=== PATIENT | female | born 1960 | race Caucasian/White ===

== ENCOUNTER 2017-01-20 10:43 | Inpatient (IN) | payer OTHER ==
[2017-01-20] VITALS (14 sets, daily range): BP systolic 94–118; BP diastolic 47–77; PULSE 90–110; TEMP 36.3–37.3; O2SAT 94–100; Ht 119.4 cm; Wt 58.6 kg
[~2017-01-20] VITALS: Ht 119.4 cm; Wt 58.6 kg
--- NOTE | 2017-01-20 11:27 | EMERGENCY ROOM VISIT NOTE ---
History Report prepared by Vladimir: Mena Ybarra Under the Supervision of: Dr. Cortes Bob M.D. First contact with patient: 11:08 Chief Complaint: ABNORMAL LABS Stated Complaint: BLOODY STOOL/ FR 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 According to the nurses, the patient comes from [facility] where she had been staying after she fell and injured her lower extremities. She was referred to the ED after her hemoglobin was found to be low. She states that she has knee pain. She denies any abdominal pain or pain elsewhere. The history is limited due to the patient' s mental impairment. 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 Review of Systems Unable to complete due to patient's mental impairment. 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 Social History Smoking Status: Never Smoker Marital Status: single Occupation Status: disabled Current/Historical Medications Scheduled Calcium Carbonate-Cholecalcife (Caltrate 600+D), 1 TAB PO BID Celecoxib (CeleBREX), 200 MG PO QAM Dexlansoprazole (Dexilant), 30 MG PO DAILY Diclofenac Epolamine (Flector), 1 PATCH EXT BID Docusate Sodium (Colace), 1 CAP PO BID Ferrous Sulfate (Ferrous Sulfate), 300 MG PO TID Levothyroxine Sodium (Synthroid), 125 MCG PO QAM Multivitamin (Multivitamin), 1 TAB PO DAILY Polyethylene (Miralax), 17 GM PO DAILY Sucralfate (Carafate), 1 GM PO BID Scheduled PRN Hydrocodone/Acetaminophen 5MG/325MG ([place] 5MG/325MG), 1 TABLET PO Q6H PRN for Pain Loratadine (Claritin), 10 MG PO DAILY PRN for ALLERGIC REACTION Allergies Coded Allergies: No Known Allergies (Unverified , 01/20/17) Physical Exam Vital Signs Date Time Temp Pulse Resp B/P Pulse Ox O2 Delivery O2 Flow Rate FiO2 01/20/17 10:56 96 01/20/17 10:55 36.9 109 22 104/73 97 Room Air Physical Exam GENERAL: Patient is in no significant distress. Patient awake, alert, oriented x 3. Patient follows commands. Patient does not appear toxic. Patient is adequately hydrated and well-nourished. SKIN: No erythema, cyanosis or rash. Very pale. HEENT: Normal head, pupils equal, reactive to light and accommodation. Ears normal. Oral cavity and posterior pharynx appear normal. Neck: Without adenopathy, no neck vein distention. LUNGS: Clear to auscultation. No wheezes, no rales, no rhonchi. HEART: Grade 2/6 systolic murmur. No gallops. No rubs ABDOMEN: Morbidly obese. No masses, no rebound, no hepatomegaly or splenomegaly. RECTAL: Brown guaiac negative stool, no masses palpated. EXTREMITIES: Casts on both lower legs. Patient has full ROM of the right knee, but appears to have an old deformity of the right knee. NEUROLOGIC: Cranial nerves II-XII within normal limits. No gross motor sensory function deficits. Medical Decision & Procedures ER Provider Diagnostic Interpretation: X ray results are stated below per my interpretation and the radiologist's interpretation. CHEST ONE VIEW PORTABLE CLINICAL HISTORY: anemia COMPARISON STUDY: No previous studies for comparison. FINDINGS: The study is rotated. Heart is normal in size given the AP technique. There is no overt failure. There is no focal pulmonary consolidation. The bones appear osteopenic.[ IMPRESSION: AP portable study. No acute findings. Electronically signed by: Eduar Perales M.D. 01/20/2017 12:18 PM Dictated Date/Time: 01/20/2017 12:17 PM Laboratory Results 01/20/17 10:55 Red Blood Count 2.32, Mean Corpuscular Volume 91.4, Mean Corpuscular Hemoglobin 27.2, Mean Corpuscular Hemoglobin Concent 29.7, Mean Platelet Volume 9.9, Neutrophils (%) (Auto) 60.4, Lymphocytes (%) (Auto) 18.7, Monocytes (%) (Auto) 13.2, Eosinophils (%) (Auto) 5.5, Basophils (%) (Auto) 2.2, Neutrophils # (Auto ) 1.65, Lymphocytes # (Auto) 0.51, Monocytes # (Auto) 0.36, Eosinophils # (Auto ) 0.15, Basophils # (Auto) 0.06 01/20/17 10:55 Test 01/20/17 10:55 White Blood Count 2.73 K/uL (4.8-10.8) Red Blood Count 2.32 M/uL (4.2-5.4) Hemoglobin 6.3 g/dL (12.0-16.0) Hematocrit 21.2 % (37-47) Mean Corpuscular Volume 91.4 fL (80-100) Mean Corpuscular Hemoglobin 27.2 pg (25-34) Mean Corpuscular Hemoglobin Concent 29.7 g/dl (32-36) Platelet Count 473 K/uL (130-400) Mean Platelet Volume 9.9 fL (7.4-10.4) Neutrophils (%) (Auto) 60.4 % Lymphocytes (%) (Auto) 18.7 % Monocytes (%) (Auto) 13.2 % Eosinophils (%) (Auto) 5.5 % Basophils (%) (Auto) 2.2 % Neutrophils # (Auto) 1.65 K/uL (1.4-6.5) Lymphocytes # (Auto) 0.51 K/uL (1.2-3.4) Monocytes # (Auto) 0.36 K/uL (0.11-0.59) Eosinophils # (Auto) 0.15 K/uL (0-0.5) Basophils # (Auto) 0.06 K/uL (0-0.2) RDW Standard Deviation 54.1 fL (36.4-46.3) RDW Coefficient of Variation 16.1 % (11.5-14.5) Immature Granulocyte % (Auto) 0.0 % Immature Granulocyte # (Auto) 0.00 K/uL (0.00-0.02) Nucleated RBC Absolute Count (auto) 0.02 K/uL (0-0) Nucleated Red Blood Cells % 0.7 % Hypochromasia PRESENT Prothrombin Time 10.9 SECONDS (9.0-12.0) Prothromb Time International Ratio 1.0 (0.9-1.1) Activated Partial Thromboplast Time 22.2 SECONDS (21.0-31.0) Partial Thromboplastin Ratio 0.9 Anion Gap 8.0 mmol/L (3-11) Estimated GFR () 102.8 Estimated GFR (Non- 88.7 BUN/Creatinine Ratio 8.1 (10-20) Calcium Level 7.8 mg/dl (8.5-10.1) Iron Level 71 mcg/dl (35-150) Total Iron Binding Capacity 200 mcg/dl (250-450) Ferritin 21.4 ng/ml (8.0-388.0) Total Bilirubin 0.2 mg/dl (0.2-1) Aspartate Amino Transf (AST/SGOT) 15 U/L (15-37) Alanine Aminotransferase (ALT/SGPT) 16 U/L (12-78) Alkaline Phosphatase 194 U/L (45-117) Total Protein 5.2 gm/dl (6.4-8.2) Albumin 1.9 gm/dl (3.4-5.0) Globulin 3.3 gm/dl (2.5-4.0) Albumin/Globulin Ratio 0.6 (0.9-2) Laboratory results as stated above per my review. ECG Indication: weakness Rate (beats per minute): 88 Rhythm: normal sinus Findings: no acute ischemic change, no ectopy ED Course 1111: Past medical records reviewed. The patient was evaluated in room B7. A complete history and physical examination was performed. 1300: I discussed the patient's case with Dr. Lawrence bryant. The patient will be evaluated for further management. Medical Decision Differential diagnoses: severe anemia, GI bleed, hemolysis. There is limited history from [facility]. Patient has casts on both lower legs. She was found to have a very low hemoglobin well at [facility] and sent here. The patient is pale. Stool is guaiac negative. Hemoglobin is just above 6. The patient will require further evaluation and transfusion. The patient was typed and crossed for 2 units. Consent was signed by me. I discussed care with the hospitalist. Consults Time Called: 1255 Consulting Physician: Dr. Lawrence Merritt hospitalist Returned Call: 1300 Discussed the patient's case with her. The patient will be evaluated for further management. Impression Primary Impression: Severe anemia Scribe Attestation The scribe's documentation has been prepared under my direction and personally reviewed by me in its entirety. I confirm that the note above accurately reflects all work, treatment, procedures, and medical decision making performed by me. Departure Information Dispostion Being Evaluated By Hospitalist Patient Instructions [facility]
[2017-01-20] MEDS ORDERED: [UNRECOGNIZED DRUG - OTHER] (12:05)
[2017-01-20] MEDS ORDERED: SYN125 PO (12:05)
[2017-01-20] MEDS ORDERED: MRLP17X PO (12:05)
[2017-01-20] MEDS ORDERED: CLB/200 PO (12:05)
[2017-01-20] MEDS ORDERED: SUCR1TAB29 PO (12:05)
[2017-01-20] MEDS ORDERED: PANT40TA PO (12:05)
[2017-01-20] MEDS ORDERED: MULT-506 PO (12:05)
[2017-01-20 12:07] LABS: PARTIAL THROMBOPLASTIN RATIO 0.9; PROTHROMBIN TIME (PATIENT) 10.9 SECONDS (9.0-12.0)
[2017-01-20 12:11] LABS: HEMATOCRIT 21.2 % (37-47); MEAN CELL VOLUME 91.4 fL (80-100); MEAN CORPUSCULAR HEMOGLOBIN 27.2 pg (25-34); MEAN CORPUSCULAR HGB CONC 29.7 g/dl (32-36); MEAN PLATELET VOLUME 9.9 fL (7.4-10.4); PLATELET COUNT 473 K/uL (130-400); RED BLOOD COUNT 2.32 M/uL (4.2-5.4); WHITE BLOOD COUNT 2.73 K/uL (4.8-10.8)
[2017-01-20 12:18] LABS: ALT/SGPT 16 U/L (12-78); AST/SGOT 15 U/L (15-37); BLOOD UREA NITROGEN 6 mg/dl (7-18); BUN/CREATININE RATIO 8.1 (10-20); CALCIUM 7.8 mg/dl (8.5-10.1); CARBON DIOXIDE 26 mmol/L (21-32); CHLORIDE 106 mmol/L (98-107); CREATININE 0.74 mg/dl (0.60-1.20); GLUCOSE 88 mg/dl (70-99); POTASSIUM 4.6 mmol/L (3.5-5.1); SODIUM 140 mmol/L (136-145)
[2017-01-20 12:20] LABS: ALB/GLOB RATIO 0.6 (0.9-2); ALKALINE PHOSPHATASE 194 U/L (45-117)
--- NOTE | 2017-01-20 12:20 | DIAGNOSTIC IMAGING REPORT ---
CHEST ONE VIEW PORTABLE CLINICAL HISTORY: anemia COMPARISON STUDY: No previous studies for comparison. FINDINGS: The study is rotated. Heart is normal in size given the AP technique. There is no overt failure. There is no focal pulmonary consolidation. The bones appear osteopenic.[ IMPRESSION: AP portable study. No acute findings. Electronically signed by: Eduar Perales M.D. 01/20/2017 12:18 PM Dictated Date/Time: 01/20/2017 12:17 PM
[2017-01-20 12:38] LABS: BASO % 2.2 %; BASO ABS # 0.06 K/uL (0-0.2); COMPLETE YES; EOS % 5.5 %; HYPOCHROMIA PRESENT; LYMPH % 18.7 %; LYMPH ABS # 0.51 K/uL (1.2-3.4); MONO % 13.2 %; NEUT % 60.4 %
[2017-01-20] MEDS ORDERED: DOCU-94 PO (13:01)
[2017-01-20] MEDS ORDERED: FSLL PO (13:01)
[2017-01-20] MEDS ORDERED: CLR10 PO (13:01)
[2017-01-20] MEDS ORDERED: DEXL30CA5 PO (13:01)
[2017-01-20 13:46] LABS: URINE APPEARANCE CLEAR (CLEAR); URINE BILIRUBIN NEG (NEG); URINE COLOR YELLOW; URINE NITRITE NEG (NEG); URINE SPECIFIC GRAVITY 1.007 (1.000-1.030); UROBILINOGEN NEG (NEG); ZZURINE CULT IF INDIC CATH NO
[2017-01-20 13:47] LABS: MANUAL MICROSCOPIC REQUIRED? NO; REVIEW REQ? NO
[2017-01-20] MEDS ORDERED: CALC-354 PO (14:10)
[2017-01-20] MEDS ORDERED: DICL1.3D21 EXT (14:10)
[2017-01-20] MEDS ORDERED: HYDR-5688 PO (14:10)
[2017-01-20 14:55] LABS: FERRITIN 21.4 ng/ml (8.0-388.0)
--- NOTE | 2017-01-20 15:46 | History and Physical ---
History & Physical Date & Time of Service: Jan 20, 2017 at 14:28 Chief Complaint: Bloody Stool/ Fr [facility] Primary Care Physician: Earl Silvestre History of Present Illness Source: patient 57 yo F with Downs syndrome who presents from [facility] with abnormally low Hb, which was checked after reports of bloody stools per family. Outpatient notes also reflect this. The patient states that she has had no issues except for pain in her knees, and has known OA. She takes Celebrex consistently and uses a Flector patch and undergoes regular steroid injections in her knees and shoulders. She most recently was falling at home (twice in one day and appears to have tripped-no loss of consciousness) and has several broken metatarsals as a result for which she was just casted one week ago by Dr. Copeland. She denies any lightheadedness, shortness of breath, abdominal pain, chest pain or any other symptom at this time. She is a poor historian based on her mental capacity it appears, but is alert and responsive to questions. Review of labs in the chart reveal a Hb 11 in Nov 2015, which appeared to slowly decline over the year, and was most recently 8.2 on 11/28 and now 6.3 today. FOBT was checked on 12/26 and was positive, however, the patient is also on iron supplementation. FOBT today was negative and rectal exam was normal per ED physician. She has not had a colonoscopy in the past related to concerns with tolerating the prep. She has a h/o EGD in 2014 (four subsequent ones for dilation of a benign stricture) which was normal. The family reports that she has had no appetite for the past week but has not had any weight loss. Past Medical/Surgical History Medical Problems: (1) Anemia Status: Chronic (2) Chronic pain of both knees Status: Chronic (3) Down syndrome Status: Chronic (4) Esophageal stricture Permanent Comment: s/p EGD with dilation in 03/2015, 03/2015, 06/2015, 07/2015 Status: Chronic (5) Generalized osteoarthritis Status: Chronic (6) Hypothyroidism (acquired) Status: Chronic (7) senior living prescription opiate use Status: Chronic (8) Metatarsal stress fracture of left foot Status: Chronic (9) Metatarsal stress fracture of right foot Status: Chronic (10) Multiple falls Status: Chronic (11) Vitamin B12 deficiency Status: Chronic Family History Patient reports no known family medical history. Social History Smoking Status: Never Smoker Smokeless Tobacco Use: No Alcohol Use: none Drug Use: none Marital Status: single Housing status: lives with family (sister Kelsi is her organ builder along with Kelsi 's son.) Occupational Status: disabled Immunizations History of Influenza Vaccine: Yes Influenza Vaccine Date: Nov 28, 2016 History of Tetanus Vaccine?: Yes Tetanus Immunization Date: Aug 07, 2011 History of Pneumococcal: Yes Pneumococcal Date: Aug 07, 2011 History of Hepatitis B Vaccine: Unknown Multi-Drug Resistant Organisms History of MDRO: No Allergies Coded Allergies: No Known Allergies (Unverified , 01/20/17) Home Medications Scheduled Calcium Carbonate-Cholecalcife (Caltrate 600+D), 1 TAB PO BID Celecoxib (CeleBREX), 200 MG PO QAM Dexlansoprazole (Dexilant), 30 MG PO DAILY Diclofenac Epolamine (Flector), 1 PATCH EXT BID Docusate Sodium (Colace), 1 CAP PO BID Ferrous Sulfate (Ferrous Sulfate), 300 MG PO TID Levothyroxine Sodium (Synthroid), 125 MCG PO QAM Multivitamin (Multivitamin), 1 TAB PO DAILY Polyethylene (Miralax), 17 GM PO DAILY Sucralfate (Carafate), 1 GM PO BID Scheduled PRN Hydrocodone/Acetaminophen 5MG/325MG ([place] 5MG/325MG), 1 TABLET PO Q6H PRN for Pain Loratadine (Claritin), 10 MG PO DAILY PRN for ALLERGIC REACTION Review of Systems Family and patient both provided answers. Constitutional: No chills, No fatigue, No fever, No weight loss ENT: No trouble swallowing Respiratory: No cough, No shortness of breath Cardiovascular: No chest pain, No edema Abdomen: + GI bleeding (intermittently over several months-no clear pattern), + diarrhea (one lone episode two nights ago-resolved), No nausea, No pain, No vomiting Musculoskeletal: + joint pain (knees and R shoulder, severe OA) Genitourinary - Female: No dysuria Neurologic: + problem reported (Down's syndrome ) Psychiatric: No problem reported Physical Exam Vital Signs Date Time Temp Pulse Resp B/P Pulse Ox O2 Delivery O2 Flow Rate FiO2 01/20/17 14:00 37.0 93 22 94/61 94 4/22/17 14:00 93 22 94/61 94 01/20/17 13:45 37.0 110 22 95/61 97 01/20/17 13:37 36.7 107 20 106/55 97 01/20/17 10:56 96 01/20/17 10:55 36.9 109 22 104/73 97 Room Air GEN: obese, in no acute distress, alert and responsive to questions, attention is easily diverted, articulation is impaired at baseline 2/2 Down's syndrome HEENT: NC/AT, PERRL, normal sclerae, mucous membranes moist, pharynx non-acute CARDIO: tachy rate, S1/2 heard without m/g/r LUNGS: CTA bilaterally, no crackles, rales or wheezes, good diaphragmatic excursion ABD: soft, non-tender, non-distended, no rebound or guarding, +BS EXTREMITY: hard casts on bilateral lower extremities to just below the knees all way to toes. Toes are warm and sensation intact bilaterally. Moves all extremities equally. NEURO: CN 2-12 grossly intact, sensation intact throughout MUSC: moves all extremities equally SKIN: warm and dry, nurses report no skin breakdown when she was turned in the ER. Diagnostics Laboratory Results Results Past 24 Hours Test 01/20/17 10:55 01/20/17 13:30 Range/Units White Blood Count 2.73 4.8-10.8 K/uL Red Blood Count 2.32 4.2-5.4 M/uL Hemoglobin 6.3 12.0-16.0 g/dL Hematocrit 21.2 37-47 % Mean Corpuscular Volume 91.4 80-100 fL Mean Corpuscular Hemoglobin 27.2 25-34 pg Mean Corpuscular Hemoglobin Concent 29.7 32-36 g/dl Platelet Count 473 130-400 K/uL Mean Platelet Volume 9.9 7.4-10.4 fL Neutrophils (%) (Auto) 60.4 % Lymphocytes (%) (Auto) 18.7 % Monocytes (%) (Auto) 13.2 % Eosinophils (%) (Auto) 5.5 % Basophils (%) (Auto) 2.2 % Neutrophils # (Auto) 1.65 1.4-6.5 K/uL Lymphocytes # (Auto) 0.51 1.2-3.4 K/uL Monocytes # (Auto) 0.36 0.11-0.59 K/uL Eosinophils # (Auto) 0.15 0-0.5 K/uL Basophils # (Auto) 0.06 0-0.2 K/uL RDW Standard Deviation 54.1 36.4-46.3 fL RDW Coefficient of Variation 16.1 11.5-14.5 % Immature Granulocyte % (Auto) 0.0 % Immature Granulocyte # (Auto) 0.00 0.00-0.02 K/uL Nucleated RBC Absolute Count (auto) 0.02 0-0 K/uL Nucleated Red Blood Cells % 0.7 % Hypochromasia PRESENT Prothrombin Time 10.9 9.0-12.0 SECONDS Prothromb Time International Ratio 1.0 0.9-1.1 Activated Partial Thromboplast Time 22.2 21.0-31.0 SECONDS Partial Thromboplastin Ratio 0.9 Sodium Level 140 136-145 mmol/L Potassium Level 4.6 3.5-5.1 mmol/L Chloride Level 106 98-107 mmol/L Carbon Dioxide Level 26 21-32 mmol/L Anion Gap 8.0 3-11 mmol/L Blood Urea Nitrogen 6 7-18 mg/dl Creatinine 0.74 0.60-1.20 mg/dl Estimated GFR () 102.8 Estimated GFR (Non- 88.7 BUN/Creatinine Ratio 8.1 10-20 Random Glucose 88 70-99 mg/dl Calcium Level 7.8 8.5-10.1 mg/dl Total Bilirubin 0.2 0.2-1 mg/dl Aspartate Amino Transf (AST/SGOT) 15 15-37 U/L Alanine Aminotransferase (ALT/SGPT) 16 12-78 U/L Alkaline Phosphatase 194 45-117 U/L Total Protein 5.2 6.4-8.2 gm/dl Albumin 1.9 3.4-5.0 gm/dl Globulin 3.3 2.5-4.0 gm/dl Albumin/Globulin Ratio 0.6 0.9-2 Urine Color YELLOW Urine Appearance CLEAR CLEAR Urine pH 6.0 4.5-7.5 Urine Specific [place] 1.007 1.000-1.030 Urine Protein NEG NEG Urine Glucose (UA) NEG NEG Urine Ketones NEG NEG Urine Occult Blood NEG NEG Urine Nitrite NEG NEG Urine Bilirubin NEG NEG Urine Urobilinogen NEG NEG Urine Leukocyte Esterase NEG NEG Diagnostic Radiology CHEST ONE VIEW PORTABLE CLINICAL HISTORY: anemia COMPARISON STUDY: No previous studies for comparison. FINDINGS: The study is rotated. Heart is normal in size given the AP technique. There is no overt failure. There is no focal pulmonary consolidation. The bones appear osteopenic.[ IMPRESSION: AP portable study. No acute findings. EKG SR 88, no ST changes. Impression Assessment and Plan 57 yo Downs patient with subacute anemia requiring transfusion 1. Anemia-recent reports of blood in stool per outpatient notes and patient is on Celebrex and uses Flector patches for severe OA. Likely GI source. H/H noted to be last normal Nov 2015 and gradually decreased to current level over the year. She was admitted to [facility] after recent falls and subsequent metatarsal fractures s/p casting two weeks ago and unable to walk on her own-- she lives and is cared for by her elderly sister. HS heard reports of blood in stool and got CBC which showed a Hb 5.5 and the patient was sent over. GI was consulted. Hold on any PPI drip at this time as there is no evidence of active bleeding at this time. Will cont PPI BID. Of note, FOBT as outpatient on 12/26 was positive and colonoscopy was recommended, however, there was concern over how she would handle the prep. Will monitor on tele overnight and attempt prep tonight. Two units of blood are ordered with a post-transfusion H/H. She is slightly tachycardic but it otherwise asymptomatic and not ill-appearing. Her biggest complaint is her knee pain. I also spoke with Dr. Copeland by phone today who states that there was some bruising present in the feet pre-cast. Dr. Morales to see her in the morning. 2. 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 This is a significant problem for her as she gets regular outpatient steroid injections in her knees and R shoulder. She uses celebrex consistently and Flector patches. Will hold these now and cont Crowder PRN for pain control. 3. hypothyroidism-cont Synthroid at current home dose 125mcg daily 4. Metatarsal fractures-per Dr. Copeland she has 2nd thru 5th metatarsal fractures on the L foot and 3rd thru 5th metatarsal fractures on the R foot after multiple falls at home. She was casted (BL feet) about one week ago and she has been having difficulty bearing weight. Therefore, she was admitted to [facility] yesterday from home. The casts will stay in place for 4-6 weeks. PT/OT was ordered to work with her as an inpatient. 5. Leukopenia- appears to be chronic, may be normal variant. Outpatient workup recommended as needed. Full Code DVT proph-cannot give chemoprophylaxis in setting of bleed and no TEDS/SCDs because of casts, however patient has risk factors for DVT with immobilization. Dispo-to telemetry for initial monitoring DO Juan RodriguezKaiser Haywardist Level of Care Telemetry Resuscitation Status FULL RESUSCITATION VTE Prophylaxis VTE Risk Assessment Done? Y/N: Yes Risk Level: Moderate Given or contraindicated: Contraindicated Social Service Consult Lives in [facility] (currently receiving treatment at [facility])
[2017-01-20] MEDS: PANTOprazole INJ 40 MG in SYRINGE 0 ML IV SCH ×2 (16:15→20:16)
[2017-01-20] MEDS: LAVAGE SOLUTION 4000ML PO SCH ×4 (18:04→18:13)
[2017-01-20 18:30] LABS: HEMATOCRIT 28.2 % (37-47)
[2017-01-20] MEDS ORDERED: NURSING VERBAL MED ORDER ONE (19:15)
[2017-01-20] MEDS: HYDROCODONE/ACETAMOPHEN 5/325MG TAB PO PRN (20:17)
[2017-01-20] MEDS: FERROUS SULFATE 325 MG/7.4 ML UDP PO SCH (20:18)
[2017-01-20] MEDS ORDERED: SODIUM CHLORIDE 0.9% 1000ML 1,000 ML IV SCH (20:45)
[2017-01-21 04:02] VITALS: BP 114/74; PULSE 106; TEMP 36.8; O2SAT 95
[2017-01-21] MEDS: LEVOTHYROXINE 125 MCG TAB PO SCH (05:32)
[2017-01-21] MEDS: HYDROCODONE/ACETAMOPHEN 5/325MG TAB PO PRN ×2 (05:32→14:03)
[2017-01-21 05:55] LABS: HEMATOCRIT 26.6 % (37-47); MEAN CELL VOLUME 86.4 fL (80-100); MEAN CORPUSCULAR HEMOGLOBIN 27.6 pg (25-34); MEAN PLATELET VOLUME 9.8 fL (7.4-10.4); PLATELET COUNT 372 K/uL (130-400); RED BLOOD COUNT 3.08 M/uL (4.2-5.4); WHITE BLOOD COUNT 2.24 K/uL (4.8-10.8)
[2017-01-21 06:28] LABS: BUN/CREATININE RATIO 12.1 (10-20); CALCIUM 7.4 mg/dl (8.5-10.1); CREATININE 0.63 mg/dl (0.60-1.20); POTASSIUM 4.3 mmol/L (3.5-5.1)
[2017-01-21 07:33] VITALS: BP 114/69; PULSE 90; TEMP 36.6; O2SAT 95
[2017-01-21] MEDS: POLYETHYLENE (MIRALAX) 17 GM PACK PO SCH (08:21)
[2017-01-21] MEDS: PANTOprazole INJ 40 MG in SYRINGE 0 ML IV SCH ×2 (08:21→20:17)
[2017-01-21] MEDS: FERROUS SULFATE 325 MG/7.4 ML UDP PO SCH ×3 (08:21→20:17)
[2017-01-21 11:54] VITALS: BP 123/67; PULSE 82; TEMP 36.6; O2SAT 96
--- NOTE | 2017-01-21 12:44 | Progress Note ---
Internal Med Progress Note Date of Service: Jan 21, 2017. Provider Documentation: SUBJECTIVE: The patient was seen and examined Mentally challenged with Down syndrome Complains of right Knee pain No other symptoms OBJECTIVE: Vital Signs-as noted below Exam: General-no distress at rest Eyes-normal ENT-normal Neck-supple Lungs-clear to ausucltate bilaterally Heart-Regular Abdomen-Benign,no masses,bowel sound present Extremities-No edema Neuro-AAOx3 Lab data as noted below. ASSESSMENT & PLAN: Acute Blood Loss Anemia Likely from GI tract No pedro bleeding Guiac positive as an OP Hb <7 on admission ,received 2 units of PRBC ,Hb >8 Denies any symptoms GI consulted Severe Osteoarthritis Complains of pain in right Knee Has had Injection before Has been on Narcotic pain medication Will try Lidocaine patch Hypothyroidism-cont Synthroid at current home dose 125mcg daily Metatarsal fractures-per Dr. Copeland 2nd thru 5th metatarsal fractures on the L foot and 3rd thru 5th metatarsal fractures on the R foot after multiple falls at home. She was casted (BL feet) about one week ago and she has been having difficulty bearing weight. The casts will stay in place for 4-6 weeks. PT/OT was ordered to work with her as an inpatient. Leukopenia- appears to be chronic, may be normal variant. Outpatient workup recommended as needed. Full Code DVT proph-cannot give chemoprophylaxis in setting of bleed and no TEDS/SCDs because of casts, however patient has risk factors for DVT with immobilization. DISPOSITION Awaited Vital Signs: Date Time Temp Pulse Resp B/P Pulse Ox O2 Delivery O2 Flow Rate FiO2 01/21/17 11:54 36.6 82 19 123/67 96 Room Air 01/21/17 08:00 Room Air 01/21/17 07:33 36.6 90 18 114/69 95 Room Air 01/21/17 04:02 36.8 106 20 114/74 95 Room Air 01/21/17 04:00 Room Air 01/20/17 23:59 Room Air 01/20/17 23:50 36.5 90 15 97/59 96 Room Air 01/20/17 20:03 37.3 98 18 111/47 96 Room Air 01/20/17 20:00 Room Air 01/20/17 16:46 36.6 103 18 115/54 95 01/20/17 16:08 100 Room Air 01/20/17 16:05 36.6 102 18 101/61 100 01/20/17 15:46 36.6 100 18 118/62 100 01/20/17 15:26 36.9 100 21 117/75 97 Room Air 01/20/17 15:11 37.0 110 18 101/77 01/20/17 15:00 36.6 96 18 101/67 100 01/20/17 14:52 100 Room Air 01/20/17 14:52 36.3 101 18 101/77 100 Room Air 01/20/17 14:51 100 Room Air 01/20/17 14:00 37.0 93 22 94/61 94 01/20/17 14:00 93 22 94/61 94 01/20/17 13:45 37.0 110 22 95/61 97 01/20/17 13:37 36.7 107 20 106/55 97 Lab Results: Results Past 24 Hours Test 01/20/17 13:30 01/20/17 18:15 01/21/17 05:20 Range/Units Urine Color YELLOW Urine Appearance CLEAR CLEAR Urine pH 6.0 4.5-7.5 Urine Specific [place] 1.007 1.000-1.030 Urine Protein NEG NEG Urine Glucose (UA) NEG NEG Urine Ketones NEG NEG Urine Occult Blood NEG NEG Urine Nitrite NEG NEG Urine Bilirubin NEG NEG Urine Urobilinogen NEG NEG Urine Leukocyte Esterase NEG NEG Hemoglobin 8.9 8.5 12.0-16.0 g/dL Hematocrit 28.2 26.6 37-47 % White Blood Count 2.24 4.8-10.8 K/uL Red Blood Count 3.08 4.2-5.4 M/uL Mean Corpuscular Volume 86.4 80-100 fL Mean Corpuscular Hemoglobin 27.6 25-34 pg Mean Corpuscular Hemoglobin Concent 32.0 32-36 g/dl RDW Standard Deviation 53.4 36.4-46.3 fL RDW Coefficient of Variation 16.9 11.5-14.5 % Platelet Count 372 130-400 K/uL Mean Platelet Volume 9.8 7.4-10.4 fL Nucleated RBC Absolute Count (auto) 0.04 0-0 K/uL Nucleated Red Blood Cells % 1.8 % Sodium Level 143 136-145 mmol/L Potassium Level 4.3 3.5-5.1 mmol/L Chloride Level 111 98-107 mmol/L Carbon Dioxide Level 25 21-32 mmol/L Anion Gap 7.0 3-11 mmol/L Blood Urea Nitrogen 8 7-18 mg/dl Creatinine 0.63 0.60-1.20 mg/dl Est Creatinine Clear Calc Drug Dose 50.3 ml/min Estimated GFR () 113.8 Estimated GFR (Non- 98.2 BUN/Creatinine Ratio 12.1 10-20 Random Glucose 68 70-99 mg/dl Calcium Level 7.4 8.5-10.1 mg/dl
[2017-01-21 15:22] VITALS: BP 116/63; PULSE 102; TEMP 36.5; O2SAT 95
--- NOTE | 2017-01-21 15:37 | Medical Consult ---
Consultation Note Date of Service Jan 21, 2017. Consultation Note Reason fro consult: anemia 57 yo Female with Downs syndrome presents with [facility] with complaints of bloody stools and anemia. She is hemodynamically stable, with FOBT neg stool on admission. Hgb 6 with normal MCV and ferritin of 21. Received 2 U with rise in Hgb to 8. No bleeding since admission. h/o EGD with dilation; no h/o cscopy in the past. 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 Social History Smoking Status: Never Smoker Smokeless Tobacco Use: No Alcohol Use: none Drug Use: none Marital Status: single Housing status: lives with family (sister Kelsi is her farm or ranch animal caretaker along with Kelsi 's son.) Occupational Status: disabled Immunizations History of Influenza Vaccine: Yes Influenza Vaccine Date: Nov 28, 2016 History of Tetanus Vaccine?: Yes Tetanus Immunization Date: Aug 07, 2011 History of Pneumococcal: Yes Pneumococcal Date: Aug 07, 2011 History of Hepatitis B Vaccine: Unknown Multi-Drug Resistant Organisms History of MDRO: No Allergies Coded Allergies: No Known Allergies (Unverified , 01/20/17) Home Medications Scheduled Calcium Carbonate-Cholecalcife (Caltrate 600+D), 1 TAB PO BID Celecoxib (CeleBREX), 200 MG PO QAM Dexlansoprazole (Dexilant), 30 MG PO DAILY Diclofenac Epolamine (Flector), 1 PATCH EXT BID Docusate Sodium (Colace), 1 CAP PO BID Ferrous Sulfate (Ferrous Sulfate), 300 MG PO TID Levothyroxine Sodium (Synthroid), 125 MCG PO QAM Multivitamin (Multivitamin), 1 TAB PO DAILY Polyethylene (Miralax), 17 GM PO DAILY Sucralfate (Carafate), 1 GM PO BID Scheduled PRN Hydrocodone/Acetaminophen 5MG/325MG ([place] 5MG/325MG), 1 TABLET PO Q6H PRN for Pain Loratadine (Claritin), 10 MG PO DAILY PRN for ALLERGIC REACTION Review of Systems Family and patient both provided answers. Constitutional: No chills, No fatigue, No fever, No weight loss ENT: No trouble swallowing Respiratory: No cough, No shortness of breath Cardiovascular: No chest pain, No edema Abdomen: + GI bleeding (intermittently over several months-no clear pattern), + diarrhea (one lone episode two nights ago-resolved), No nausea, No pain, No vomiting Musculoskeletal: + joint pain (knees and R shoulder, severe OA) Genitourinary - Female: No dysuria Neurologic: + problem reported (Down's syndrome ) Psychiatric: No problem reported Physical Exam Vital Signs Date Time Temp Pulse Resp B/P Pulse Ox O2 Delivery O2 Flow Rate FiO2 01/20/17 14:00 37.0 93 22 94/61 94 01/20/17 14:00 93 22 94/61 94 01/20/17 13:45 37.0 110 22 95/61 97 01/20/17 13:37 36.7 107 20 106/55 97 01/20/17 10:56 96 01/20/17 10:55 36.9 109 22 104/73 97 Room Air GEN: obese, in no acute distress, alert and responsive to questions, \ HEENT: NC/AT, PERRL, normal sclerae, mucous membranes moist, pharynx non-acute CARDIO: tachy rate, S1/2 heard without m/g/r LUNGS: CTA bilaterally, no crackles, rales or wheezes, good diaphragmatic excursion ABD: soft, non-tender, non-distended, no rebound or guarding, +BS EXTREMITY: hard casts on bilateral lower extremities to just below the knees all way to toes. Toes are warm and sensation intact bilaterally. Moves all extremities equally. NEURO: CN 2-12 grossly intact, sensation intact throughout MUSC: moves all extremities equally SKIN: warm and dry, nurses report no skin breakdown when she was turned in the ER. Diagnostics Laboratory Results Labs reviewed Impression Assessment and Plan 57 yo Downs patient with iron deficiency anemia - Would check Hp and celiac serologies as outpt. - Plan EGD and cscopy on Sunday.
[2017-01-21] MEDS ORDERED: LIDODERM (LIDOCAINE) PATCH 5% TD ONE (18:00)
[2017-01-21 19:07] VITALS: BP 112/57; PULSE 95; TEMP 37; O2SAT 97
[2017-01-21 23:50] VITALS: BP_SYST 111; BP_SYST 97; BP_DIAS 53; BP_DIAS 74; PULSE 67; PULSE 88; TEMP 37.3; O2SAT 92; O2SAT 94
[2017-01-22 04:12] VITALS: BP 118/69; PULSE 85; TEMP 36.5; O2SAT 96
--- NOTE | 2017-01-22 07:23 | Clinical Documentation Query ---
CLINICAL DOCUMENTATION QUERY Dr. LARA, In your clinical opinion is this patient being managed for: ( + ) GI bleed (causing acute blood loss anemia) ( ) Other explanation of clinical findings (Please Explain) ( ) Unable to determine (Please Define) ( ) Need to Discuss ( ) Not Agree The medical record reflects the following clinical findings, treatment, and risk factors. Clinical Indicators: H/P indicates pt with anemia likely GI source; subsequent progress note indicates acute blood loss anemia likely from GI tract. Noted that pt had guaiac positive as an outpatient. Treatment: GI consult with plan for endoscopies, 2U PRBC's, serial CBC's, IV protonix Risk Factors: celebrex, flector patch Please clarify and document your clinical opinion in the progress notes and discharge summary. Terms such as "probable", "suspected", "likely", "questionable", "possible", or "still to be ruled out" are acceptable. IF IN AGREEMENT, YOU MUST DOCUMENT ABOVE DIAGNOSTIC STATEMENT IN DAILY PROGRESS NOTES AND DISCHARGE SUMMARY. This document is not part of the patient's record. Thank You, Camille Marti, NENITA [phone]
[2017-01-22] MEDS: PANTOprazole INJ 40 MG in SYRINGE 0 ML IV SCH ×2 (07:52→22:13)
[2017-01-22] MEDS: HYDROCODONE/ACETAMOPHEN 5/325MG TAB PO PRN ×2 (07:52→19:45)
[2017-01-22] MEDS: LEVOTHYROXINE 125 MCG TAB PO SCH (07:53)
[2017-01-22] MEDS: LIDODERM (LIDOCAINE) PATCH 5% TD SCH (07:53)
[2017-01-22] MEDS: FERROUS SULFATE 325 MG/7.4 ML UDP PO SCH ×3 (07:53→21:38)
[2017-01-22] MEDS: POLYETHYLENE (MIRALAX) 17 GM PACK PO SCH (07:53)
[2017-01-22 07:54] VITALS: BP 113/70; PULSE 93; TEMP 37; O2SAT 96
[2017-01-22 09:01] LABS: HEMATOCRIT 28.5 % (37-47); MEAN CELL VOLUME 87.7 fL (80-100); MEAN CORPUSCULAR HEMOGLOBIN 27.4 pg (25-34); MEAN CORPUSCULAR HGB CONC 31.2 g/dl (32-36); MEAN PLATELET VOLUME 9.5 fL (7.4-10.4); PLATELET COUNT 360 K/uL (130-400); RED BLOOD COUNT 3.25 M/uL (4.2-5.4); WHITE BLOOD COUNT 3.09 K/uL (4.8-10.8)
[2017-01-22 09:27] LABS: BUN/CREATININE RATIO 5.6 (10-20); CREATININE 0.68 mg/dl (0.60-1.20); POTASSIUM 4.2 mmol/L (3.5-5.1)
[2017-01-22 09:30] LABS: ALB/GLOB RATIO 0.6 (0.9-2)
[2017-01-22 09:38] LABS: CALCIUM 7.9 mg/dl (8.5-10.1)
[2017-01-22 11:08] VITALS: BP 116/71; PULSE 92; TEMP 36.5; O2SAT 96
--- NOTE | 2017-01-22 11:42 | Progress Note ---
Internal Med Progress Note Date of Service: Jan 22, 2017. Provider Documentation: SUBJECTIVE: The patient was seen and examined Mentally challenged with Down syndrome Complains of right Knee pain -better with the patch Complains of Back pain today no other symptoms OBJECTIVE: Vital Signs-as noted below Exam: General-no distress at rest Eyes-normal ENT-normal Neck-supple Lungs-clear to ausucltate bilaterally Heart-Regular Abdomen-Benign,no masses,bowel sound present Extremities-No edema Severe OA changes of the joints Bilateral Leg casts Neuro-AAOx3 Lab data as noted below. ASSESSMENT & PLAN: Acute Blood Loss Anemia-Likely from GI tract No pedro bleeding Guiac positive as an OP but not [facility] Hb <7 on admission ,received 2 units of PRBC ,Hb >8 Denies any symptoms now GI consulted -appreciate input Has Iron deficiency-started on Oral and has been on that. May need IV Iron in future EGD and Colonoscopy tomorrow Hb 8.9 today Severe Osteoarthritis Complains of pain in right Knee Has had Injection before Has been on Narcotic pain medication Will try Lidocaine patch -helping Hypothyroidism-cont Synthroid at current home dose 125mcg daily Metatarsal fractures-per Dr. Copeland 2nd thru 5th metatarsal fractures on the L foot and 3rd thru 5th metatarsal fractures on the R foot after multiple falls at home. She was casted (BL feet) about one week ago and she has been having difficulty bearing weight. The casts will stay in place for 4-6 weeks. PT/OT was ordered to work with her as an inpatient. Leukopenia- appears to be chronic, may be normal variant. Outpatient workup recommended as needed. Chronic -3.09 today Full Code DVT proph-cannot give chemoprophylaxis in setting of bleed and no TEDS/SCDs because of casts, however patient has risk factors for DVT with immobilization. DISPOSITION Awaited Vital Signs: Date Time Temp Pulse Resp B/P Pulse Ox O2 Delivery O2 Flow Rate FiO2 01/22/17 08:00 Room Air 01/22/17 07:54 37.0 93 20 113/70 96 Room Air 01/22/17 04:12 36.5 85 20 118/69 96 Room Air 01/22/17 04:00 Room Air 01/21/17 23:59 Room Air 01/21/17 23:50 37.3 88 22 97/53 94 Room Air 01/21/17 20:00 Room Air 01/21/17 19:07 37.0 95 19 112/57 97 Room Air 01/21/17 16:00 Room Air 01/21/17 15:22 36.5 102 16 116/63 95 Room Air 01/21/17 12:00 Room Air 01/21/17 11:54 36.6 82 19 123/67 96 Room Air Lab Results: Results Past 24 Hours Test 01/22/17 08:50 Range/Units White Blood Count 3.09 4.8-10.8 K/uL Red Blood Count 3.25 4.2-5.4 M/uL Hemoglobin 8.9 12.0-16.0 g/dL Hematocrit 28.5 37-47 % Mean Corpuscular Volume 87.7 80-100 fL Mean Corpuscular Hemoglobin 27.4 25-34 pg Mean Corpuscular Hemoglobin Concent 31.2 32-36 g/dl RDW Standard Deviation 54.1 36.4-46.3 fL RDW Coefficient of Variation 16.8 11.5-14.5 % Platelet Count 360 130-400 K/uL Mean Platelet Volume 9.5 7.4-10.4 fL Sodium Level 143 136-145 mmol/L Potassium Level 4.2 3.5-5.1 mmol/L Chloride Level 109 98-107 mmol/L Carbon Dioxide Level 26 21-32 mmol/L Anion Gap 8.0 3-11 mmol/L Blood Urea Nitrogen 4 7-18 mg/dl Creatinine 0.68 0.60-1.20 mg/dl Est Creatinine Clear Calc Drug Dose 46.0 ml/min Estimated GFR () 111.0 Estimated GFR (Non- 95.7 BUN/Creatinine Ratio 5.6 10-20 Random Glucose 91 70-99 mg/dl Calcium Level 7.9 8.5-10.1 mg/dl Total Bilirubin 0.2 0.2-1 mg/dl Aspartate Amino Transf (AST/SGOT) 19 15-37 U/L Alanine Aminotransferase (ALT/SGPT) 16 12-78 U/L Alkaline Phosphatase 183 45-117 U/L Total Protein 4.6 6.4-8.2 gm/dl Albumin 1.8 3.4-5.0 gm/dl Globulin 2.8 2.5-4.0 gm/dl Albumin/Globulin Ratio 0.6 0.9-2
[2017-01-22] MEDS ORDERED: NURSING VERBAL MED ORDER ONE (14:30)
[2017-01-22] MEDS ORDERED: LORAZEPAM 0.5 MG TAB ONE (14:44)
[2017-01-22] MEDS ORDERED: LORAZEPAM 0.5 MG TAB PO PRN (15:00)
[2017-01-22 15:22] VITALS: BP 100/67; PULSE 95; TEMP 37; O2SAT 98
--- NOTE | 2017-01-22 15:59 | Gastroenterology Progress Note ---
Progress Note Date of Service: Jan 22, 2017 Subjective Pt evaluation today including: conversation w/ patient, conversation w/ family , physical exam, chart review, lab review, review of inpatient medication list Pt denies any abd pain, n/v. Per RN she didn't any s/s of rectal bleeding or dark stools. Noted Hgb up from 6 to 8.9 after 2U PRBC transfusion on 01/20. Currently on Ferrous Sulfate 325mg TID Review of Systems Constitutional: No chills, No fever Abdomen: No GI bleeding, No nausea, No pain, No vomiting Medications Current Inpatient Medications Medications (Trade) Dose Ordered Sig/Jose Route Start Time Stop Time Status Last Admin Dose Admin Ferrous Sulfate (Feosol Elix) 325 mg TID PO 01/20/17 21:00 02/19/17 20:59 01/22/17 14:41 325 MG Levothyroxine Sodium (Synthroid Tab) 125 mcg DAILYBB PO 01/21/17 06:00 02/20/17 06:59 01/22/17 07:53 125 MCG Polyethylene (Miralax Powder Packet) 17 gm DAILY PO 01/21/17 09:00 02/20/17 08:59 01/22/17 07:53 17 GM Acetaminophen/ Hydrocodone Bitart 1 tab 1 tab Q6H PRN PO 01/20/17 14:15 02/03/17 14:14 01/22/17 07:52 1 TAB Pantoprazole Sodium/Syringe (Protonix Inj/ Syringe) 10 ml @ 5 mls/min Q12 IV 01/20/17 16:15 02/19/17 16:14 01/22/17 07:52 5 MLS/MIN Lidocaine (Lidoderm Patch 5%) 1 patch QAM TD 01/22/17 09:00 02/21/17 08:59 01/22/17 07:53 1 PATCH Miscellaneous (Remove Lidoderm Patch) 1 ea DAILY@21 N/A 01/21/17 23:00 02/20/17 22:59 01/21/17 23:19 1 EA Lorazepam (Ativan Tab) 0.5 mg Q4H PRN PO 01/22/17 15:00 02/21/17 14:59 Enteral Nutritional Formula (Boost Breeze Nutritional Drink) 1 box BIDM PO 01/22/17 16:45 02/21/17 16:44 Objective Vital Signs Date Time Temp Pulse Resp B/P Pulse Ox O2 Delivery O2 Flow Rate FiO2 01/22/17 15:22 37.0 95 20 100/67 98 Room Air 01/22/17 12:00 Room Air 01/22/17 11:08 36.5 92 20 116/71 96 Room Air 01/22/17 08:00 Room Air 01/22/17 07:54 37.0 93 20 113/70 96 Room Air 01/22/17 04:12 36.5 85 20 118/69 96 Room Air 01/22/17 04:00 Room Air 01/21/17 23:59 Room Air 01/21/17 23:50 37.3 88 22 97/53 94 Room Air 01/21/17 20:00 Room Air 01/21/17 19:07 37.0 95 19 112/57 97 Room Air 01/21/17 16:00 Room Air Physical Exam General Appearance: WD/WN, no apparent distress Eyes: normal inspection, PERRL, EOMI Neck: supple, no JVD, trachea midline Respiratory/Chest: no respiratory distress, no accessory muscle use, + decreased breath sounds Cardiovascular: regular rate, rhythm, no gallop, no murmur Abdomen: normal bowel sounds, non tender, soft Extremities: normal inspection, no pedal edema, no calf tenderness Neurologic/Psych: alert, normal mood/affect, oriented x 3 Skin: normal color, no jaundice, no rash Laboratory Results Last 24 Hours Test 01/22/17 08:50 White Blood Count 3.09 K/uL Red Blood Count 3.25 M/uL Hemoglobin 8.9 g/dL Hematocrit 28.5 % Mean Corpuscular Volume 87.7 fL Mean Corpuscular Hemoglobin 27.4 pg Mean Corpuscular Hemoglobin Concent 31.2 g/dl RDW Standard Deviation 54.1 fL RDW Coefficient of Variation 16.8 % Platelet Count 360 K/uL Mean Platelet Volume 9.5 fL Sodium Level 143 mmol/L Potassium Level 4.2 mmol/L Chloride Level 109 mmol/L Carbon Dioxide Level 26 mmol/L Anion Gap 8.0 mmol/L Blood Urea Nitrogen 4 mg/dl Creatinine 0.68 mg/dl Est Creatinine Clear Calc Drug Dose 46.0 ml/min Estimated GFR () 111.0 Estimated GFR (Non- 95.7 BUN/Creatinine Ratio 5.6 Random Glucose 91 mg/dl Calcium Level 7.9 mg/dl Total Bilirubin 0.2 mg/dl Aspartate Amino Transf (AST/SGOT) 19 U/L Alanine Aminotransferase (ALT/SGPT) 16 U/L Alkaline Phosphatase 183 U/L Total Protein 4.6 gm/dl Albumin 1.8 gm/dl Globulin 2.8 gm/dl Albumin/Globulin Ratio 0.6 Assessment and Plan Pt is a 57 y/o female w Down's Syndrome seen for iron deficiency anemia. Previously had bloody stools but repeat FOBT negative. Had 4 EGDs in 2015 w dilation of esophageal stricture. Hgb been stable at 8.9 since 2U PRBC transfusion. No more signs of rectal bleeding. Spoke w pt's sister Kelsi today - she wishes to defer further endoscopic evaluation of pt. - Continue iron supplements - Continue Protonix 40mg BID - Check Hpylori stool and celiac ab panel - Defer endoscopy evals; will sign off and pls call if new questions or concerns arise. I performed a history and physical examination of the patient. I have discussed the patient's case, impression and plan with BERT Mckoy on . Her note reflects my findings and plan. Had lengthy discussion with family (sisters) as well. The patient and family do not want any invasive testing at this time. Patient should stay on daily PPI. Rubén Vazquez MD
[2017-01-22] MEDS ORDERED: POLYETHYLENE (MIRALAX) 17 GM PACK PO ONE ×2 (17:00→21:00)
[2017-01-22] MEDS ORDERED: BISACODYL 5 MG TABEC PO ONE (17:00)
[2017-01-22] MEDS: BOOST BREEZE NUTRITION DRINK 1 BOX PO SCH (17:17)
[2017-01-22 20:03] VITALS: BP 90/45; PULSE 94; TEMP 37.2; O2SAT 97
[2017-01-23 03:36] VITALS: BP 108/62; PULSE 79; TEMP 37; O2SAT 95
[2017-01-23] MEDS: LEVOTHYROXINE 125 MCG TAB PO SCH (05:27)
[2017-01-23] MEDS: HYDROCODONE/ACETAMOPHEN 5/325MG TAB PO PRN (05:34)
[2017-01-23 06:20] LABS: HEMATOCRIT 30.7 % (37-47); MEAN CELL VOLUME 88.7 fL (80-100); MEAN CORPUSCULAR HEMOGLOBIN 26.9 pg (25-34); MEAN CORPUSCULAR HGB CONC 30.3 g/dl (32-36); MEAN PLATELET VOLUME 10.1 fL (7.4-10.4); PLATELET COUNT 385 K/uL (130-400); RED BLOOD COUNT 3.46 M/uL (4.2-5.4); WHITE BLOOD COUNT 2.55 K/uL (4.8-10.8)
[2017-01-23 06:59] LABS: BUN/CREATININE RATIO 5.9 (10-20); CALCIUM 7.6 mg/dl (8.5-10.1); CREATININE 0.63 mg/dl (0.60-1.20); POTASSIUM 3.7 mmol/L (3.5-5.1)
[2017-01-23 07:16] VITALS: BP 141/74; PULSE 100; TEMP 36.5; O2SAT 97
[2017-01-23] MEDS: BOOST BREEZE NUTRITION DRINK 1 BOX PO SCH (07:25)
[2017-01-23] MEDS: FERROUS SULFATE 325 MG/7.4 ML UDP PO SCH (07:26)
[2017-01-23] MEDS: LIDODERM (LIDOCAINE) PATCH 5% TD SCH (07:26)
[2017-01-23] MEDS: POLYETHYLENE (MIRALAX) 17 GM PACK PO SCH (07:27)
[2017-01-23] MEDS: PANTOprazole INJ 40 MG in SYRINGE 0 ML IV SCH (07:28)
--- NOTE | 2017-01-23 08:02 | Clinical Documentation Query ---
CLINICAL DOCUMENTATION QUERY Dr. LEIVA, In your clinical opinion is this patient being managed for: ( ) GI bleed (causing acute blood loss anemia) ( ) Other explanation of clinical findings (Please Explain) ( ) Unable to determine (Please Define) ( ) Need to Discuss ( ) Not Agree The medical record reflects the following clinical findings, treatment, and risk factors. Clinical Indicators: H/P indicates pt with anemia likely GI source; subsequent progress note indicates acute blood loss anemia likely from GI tract. Noted that pt had guaiac positive as an outpatient. Treatment: GI consult with plan for endoscopies, 2U PRBC's, serial CBC's, IV protonix Risk Factors: celebrex, flector patch Please clarify and document your clinical opinion in the progress notes and discharge summary. Terms such as "probable", "suspected", "likely", "questionable", "possible", or "still to be ruled out" are acceptable. IF IN AGREEMENT, YOU MUST DOCUMENT ABOVE DIAGNOSTIC STATEMENT IN DAILY PROGRESS NOTES AND DISCHARGE SUMMARY. This document is not part of the patient's record. Thank You, Camille Marti RN [phone]
--- NOTE | 2017-01-23 10:35 | Progress Note ---
Medicine Progress Note Date & Time of Visit: Jan 23, 2017 at 10:17. Subjective Pt was seen and examined sitting in bed with no distress pt said that she feels fine her only complaint is pain in her legs denies any chest pain, palpitation, dizziness and sob Objective Last 8 Hrs Date Time Temp Pulse Resp B/P Pulse Ox O2 Delivery O2 Flow Rate FiO2 01/23/17 07:54 Room Air 01/23/17 07:16 36.5 100 20 141/74 97 Room Air 01/23/17 04:00 Room Air 01/23/17 03:36 37.0 79 18 108/62 95 Room Air Physical Exam: General- No acute distress Head- atraumatic Eyes- PERRL, EOMI ENT- oropharynx clear Neck- supple, no JVD, no adenopathy Lungs- clear to auscultation, No wheezing Heart- regular rhythm; no murmur Abdomen- normal bowel sounds, soft Extremities- no calf tenderness, cast in B/L leg Neuro- alert, oriented, follow commands Skin- warm & dry Laboratory Results: Last 24 Hours Test 01/22/17 16:54 01/23/17 05:35 White Blood Count 2.55 K/uL Red Blood Count 3.46 M/uL Hemoglobin 9.3 g/dL Hematocrit 30.7 % Mean Corpuscular Volume 88.7 fL Mean Corpuscular Hemoglobin 26.9 pg Mean Corpuscular Hemoglobin Concent 30.3 g/dl RDW Standard Deviation 53.3 fL RDW Coefficient of Variation 16.7 % Platelet Count 385 K/uL Mean Platelet Volume 10.1 fL Nucleated RBC Absolute Count (auto) 0.02 K/uL Nucleated Red Blood Cells % 0.6 % Sodium Level 142 mmol/L Potassium Level 3.7 mmol/L Chloride Level 109 mmol/L Carbon Dioxide Level 27 mmol/L Anion Gap 6.0 mmol/L Blood Urea Nitrogen 4 mg/dl Creatinine 0.63 mg/dl Est Creatinine Clear Calc Drug Dose 49.8 ml/min Estimated GFR () 113.8 Estimated GFR (Non- 98.2 BUN/Creatinine Ratio 5.9 Random Glucose 72 mg/dl Calcium Level 7.6 mg/dl Assessment & Plan Acute Blood Loss Anemia Possible from GI Etiology No pedro bleeding Guaiac positive as an OP but not Hospital Hb 6.3 on admission ,received 2 units of PRBC during this admission Denies any symptoms now GI consulted -appreciate input Has Iron deficiency-started on Oral and has been on that. May need IV Iron in future Defer endoscopy eval for now as per sister Kelsi Hb 9.3 today Severe Osteoarthritis Complains of pain in right Knee Has had Injection before Has been on Narcotic pain medication Continue lidocaine patch Hypothyroidism Continue Synthroid 125mcg daily Metatarsal fractures-per Dr. Copeland 2nd thru 5th metatarsal fractures on the L foot and 3rd thru 5th metatarsal fractures on the R foot after multiple falls at home. She was casted (BL feet) about one week ago and she has been having difficulty bearing weight. The casts will stay in place for 4-6 weeks. Continue PT/OT Leukopenia- appears to be chronic, may be normal variant. Outpatient workup recommended as needed. Chronic -2.55 today CODE STATUS Full Code DVT px - NO DVT prophylaxis due to bleeding NO TEDS/SCDs because of casts, however patient has risk factors for DVT with immobilization. Disposition Will discharge to Rehab today Consultants: Gastro PT/OT Current Inpatient Medications: Current Inpatient Medications Medications (Trade) Dose Ordered Sig/Jose Route Start Time Stop Time Status Last Admin Dose Admin Ferrous Sulfate (Feosol Elix) 325 mg TID PO 01/20/17 21:00 02/19/17 20:59 01/23/17 07:26 325 MG Levothyroxine Sodium (Synthroid Tab) 125 mcg DAILYBB PO 01/21/17 06:00 02/20/17 06:59 01/23/17 05:27 125 MCG Polyethylene (Miralax Powder Packet) 17 gm DAILY PO 01/21/17 09:00 02/20/17 08:59 01/22/17 07:53 17 GM Acetaminophen/ Hydrocodone Bitart 1 tab 1 tab Q6H PRN PO 01/20/17 14:15 02/03/17 14:14 01/23/17 05:34 1 TAB Pantoprazole Sodium/Syringe (Protonix Inj/ Syringe) 10 ml @ 5 mls/min Q12 IV 01/20/17 16:15 02/19/17 16:14 01/22/17 22:13 5 MLS/MIN Lidocaine (Lidoderm Patch 5%) 1 patch QAM TD 01/22/17 09:00 02/21/17 08:59 01/23/17 07:26 1 PATCH Miscellaneous (Remove Lidoderm Patch) 1 ea DAILY@21 N/A 01/21/17 23:00 02/20/17 22:59 01/22/17 21:00 1 EA Lorazepam (Ativan Tab) 0.5 mg Q4H PRN PO 01/22/17 15:00 02/21/17 14:59 01/22/17 19:45 0.5 MG Enteral Nutritional Formula (Boost Breeze Nutritional Drink) 1 box BIDM PO 01/22/17 16:45 02/21/17 16:44 01/23/17 07:25 1 BOX
[2017-01-23 11:18] VITALS: BP 101/48; PULSE 84; TEMP 36.4; O2SAT 99
[2017-01-23] MEDS ORDERED: LDDP5 TD (13:43)
[2017-01-23] MEDS ORDERED: PANT40TA2 PO ×2 (13:48)
--- NOTE | 2017-01-23 13:54 | Discharge Instructions ---
Discharge Instructions Date of Service Jan 23, 2017. Admission Reason for Admission: Anemia Discharge Discharge Diagnosis / Problem: Anemia, Metartasal fractures, Hypothyroidism Discharge Goals Goal(s): Decrease discomfort, Improve function, Improve disease control Activity Recommendations Activity Limitations: resume your previous activity (as tolerated) . Instructions / Follow-Up Instructions / Follow-Up Please schedule follow up appointment with your PCP once you discharge from rehab Repeat cbc in 1 week. Increase activity gradually as tolerated Fall precaution PT/OT eval Current Hospital Diet Patient's current hospital diet: Low Fiber Diet Discharge Diet Recommended Diet: Low Fiber Diet Pending Studies Studies pending at discharge: no Medical Emergencies . Who to Call and When: Medical Emergencies: If at any time you feel your situation is an emergency, please call 911 immediately. . Non-Emergent Contact Non-Emergency issues call your: Primary Care Provider Call Non-Emergent contact if: your pain is not controlled, your pain is worsening . . "Provider Documentation" section prepared by Elliott Spivey. . VTE Core Measure Inpt VTE Proph given/why not?: Contraindicated
[2017-01-23 14:00] VITALS: BP 108/62; PULSE 79; TEMP 37; O2SAT 95
[2017-01-23] MEDS ORDERED: PANTOprazole SOD 40 MG TAB PO SCH (21:00)
[2017-01-25 22:06] LABS: IGA SERUM 366 mg/dL (81-463); TIS TRANS IGA 2 U/mL (<4)
--- NOTE | 2017-01-26 08:03 | Discharge Summary ---
Discharge Summary Date of Service Jan 26, 2017. Discharge Summary Admission Date: Jan 20, 2017 at 13:22 Discharge Date: Jan 23, 2017 Discharge Disposition: Rehab Principal Diagnosis: Acute Blood Loss Anemia Secondary Diagnoses/Problems: Metatarsal fractures Hypothyroidism Severe Osteoarthritis leukopenia Procedures: Gastro Consultations: Gastro PT/OT Medication Reconciliation New Medications: Pantoprazole (Pantoprazole Sodium) 40 Mg Tab 40 MG PO BID for 15 Days Lidocaine (Lidocaine) 1 Patch Tdsy 1 PATCH TD QAM for 30 Days Continued Medications: Calcium Carbonate-Cholecalcife (Caltrate 600+D) 1 Tab Tab 1 TAB PO BID Docusate Sodium (Colace) 100 Mg Cap 1 CAP PO BID for 30 Days, #60 CAP Ferrous Sulfate (Ferrous Sulfate) 220 Mg/5 Ml Elix 300 MG PO TID Hydrocodone/Acetaminophen 5MG/325MG (Success 5MG/325MG) Tab 1 TABLET PO Q6H PRN for Pain, TAB Levothyroxine Sodium (Synthroid) 125 Mcg Tab 125 MCG PO QAM Loratadine (Claritin) 10 Mg Tab 10 MG PO DAILY PRN for ALLERGIC REACTION, TAB Multivitamin (Multivitamin) Tab 1 TAB PO DAILY, TAB Polyethylene (Miralax) 17 Gm Pow 17 GM PO DAILY Sucralfate (Carafate) 1 Gm Tab 1 GM PO BID, TAB Discontinued Medications: Celecoxib (CeleBREX) 200 Mg Cap 200 MG PO QAM, CAP Dexlansoprazole (Dexilant) 30 Mg Cap 30 MG PO DAILY Diclofenac Epolamine (Flector) 1.3 % Dis 1 PATCH EXT BID Admission Information HPI (per Admitting provider): 57 yo F with Downs syndrome who presents from [facility] with abnormally low Hb, which was checked after reports of bloody stools per family. Outpatient notes also reflect this. The patient states that she has had no issues except for pain in her knees, and has known OA. She takes Celebrex consistently and uses a Flector patch and undergoes regular steroid injections in her knees and shoulders. She most recently was falling at home (twice in one day and appears to have tripped-no loss of consciousness) and has several broken metatarsals as a result for which she was just casted one week ago by Dr. Copeland. She denies any lightheadedness, shortness of breath, abdominal pain, chest pain or any other symptom at this time. She is a poor historian based on her mental capacity it appears, but is alert and responsive to questions. Review of labs in the chart reveal a Hb 11 in Nov 2015, which appeared to slowly decline over the year, and was most recently 8.2 on 11/28 and now 6.3 today. FOBT was checked on 12/26 and was positive, however, the patient is also on iron supplementation. FOBT today was negative and rectal exam was normal per ED physician. She has not had a colonoscopy in the past related to concerns with tolerating the prep. She has a h/o EGD in 2014 (four subsequent ones for dilation of a benign stricture) which was normal. The family reports that she has had no appetite for the past week but has not had any weight loss. Physical Exam (per Admitting): GEN: obese, in no acute distress, alert and responsive to questions, attention is easily diverted, articulation is impaired at baseline 2/2 Down's syndrome HEENT: NC/AT, PERRL, normal sclerae, mucous membranes moist, pharynx non-acute CARDIO: tachy rate, S1/2 heard without m/g/r LUNGS: CTA bilaterally, no crackles, rales or wheezes, good diaphragmatic excursion ABD: soft, non-tender, non-distended, no rebound or guarding, +BS EXTREMITY: hard casts on bilateral lower extremities to just below the knees all way to toes. Toes are warm and sensation intact bilaterally. Moves all extremities equally. NEURO: CN 2-12 grossly intact, sensation intact throughout MUSC: moves all extremities equally SKIN: warm and dry, nurses report no skin breakdown when she was turned in the ER. Hospital Course Acute Blood Loss Anemia Possible from GI Etiology No pedro bleeding Guaiac positive as an OP but not [facility] Hb 6.3 on admission ,received 2 units of PRBC during this admission Denies any symptoms now GI consulted -appreciate input Has Iron deficiency-started on Oral and has been on that. May need IV Iron in future Defer endoscopy eval for now as per sister Kelsi Hb 9.3 today Severe Osteoarthritis Complains of pain in right Knee Has had Injection before Has been on Narcotic pain medication Continue lidocaine patch Hypothyroidism Continue Synthroid 125mcg daily Metatarsal fractures-per Dr. Copeland 2nd thru 5th metatarsal fractures on the L foot and 3rd thru 5th metatarsal fractures on the R foot after multiple falls at home. She was casted (BL feet) about one week ago and she has been having difficulty bearing weight. The casts will stay in place for 4-6 weeks. Continue PT/OT Leukopenia- appears to be chronic, may be normal variant. Outpatient workup recommended as needed. Chronic -2.55 today CODE STATUS Full Code DVT px - NO DVT prophylaxis due to bleeding NO TEDS/SCDs because of casts, however patient has risk factors for DVT with immobilization. Disposition Will discharge to Rehab today Total time spent on discharge = 35 min This includes examination of the patient, discharge planning, medication reconciliation, and communication with other providers. Discharge Instructions Discharge Instructions Date of Service Jan 23, 2017. Admission Reason for Admission: Anemia Discharge Discharge Diagnosis / Problem: Anemia, Metartasal fractures, Hypothyroidism Discharge Goals Goal(s): Decrease discomfort, Improve function, Improve disease control Activity Recommendations Activity Limitations: resume your previous activity (as tolerated) . Instructions / Follow-Up Instructions / Follow-Up Please schedule follow up appointment with your PCP once you discharge from rehab Repeat cbc in 1 week. Increase activity gradually as tolerated Fall precaution PT/OT eval Current Hospital Diet Patient's current hospital diet: Low Fiber Diet Discharge Diet Recommended Diet: Low Fiber Diet Pending Studies Studies pending at discharge: no Medical Emergencies . Who to Call and When: Medical Emergencies: If at any time you feel your situation is an emergency, please call 911 immediately. . Non-Emergent Contact Non-Emergency issues call your: Primary Care Provider Call Non-Emergent contact if: your pain is not controlled, your pain is worsening . . "Provider Documentation" section prepared by Elliott Spivey. . VTE Core Measure Inpt VTE Proph given/why not?: Contraindicated [facility]
== END 2017-01-23 15:13 | DRG 378 ==
LOC: ENRESERVTM → ENRESERVDT → C.EDB 10:48 → C.2E 13:22
PROVIDERS: ADMIT Hospitalist; ATTEND Internal Medicine
DX: K92.2 Gastrointestinal hemorrhage, unspecified (principal); D62 Acute posthemorrhagic anemia; D50.9 Iron deficiency anemia, unspecified; K92.1 Melena; E03.9 Hypothyroidism, unspecified; M17.11 Unilateral primary osteoarthritis, right knee; D72.819 Decreased white blood cell count, unspecified; S92.331A Displaced fracture of third metatarsal bone, right foot, initial encounter for closed fracture; S92.341A Displaced fracture of fourth metatarsal bone, right foot, initial encounter for closed fracture; S92.351A Displaced fracture of fifth metatarsal bone, right foot, initial encounter for closed fracture; S92.322A Displaced fracture of second metatarsal bone, left foot, initial encounter for closed fracture; S92.332A Displaced fracture of third metatarsal bone, left foot, initial encounter for closed fracture; S92.342A Displaced fracture of fourth metatarsal bone, left foot, initial encounter for closed fracture; S92.352A Displaced fracture of fifth metatarsal bone, left foot, initial encounter for closed fracture; W19.XXXA Unspecified fall, initial encounter; R29.6 Repeated falls; M35.7 Hypermobility syndrome; Y92.009 Unspecified place in unspecified non-institutional (private) residence as the place of occurrence of the external cause; Z87.19 Personal history of other diseases of the digestive system; Z79.1 Long term (current) use of non-steroidal anti-inflammatories (NSAID); Z79.899 Other long term (current) drug therapy; Z79.891 Long term (current) use of opiate analgesic; Q90.9 Down syndrome, unspecified